=== PATIENT | male | born 1960 | race Caucasian/White ===

== ENCOUNTER → 2023-10-23 | Outpatient (CLI) | payer OTHER, SELFPAY ==
--- NOTE | 2023-10-23 10:07 | MRI_ITS ---
HISTORY: pain. TECHNIQUE: Multiplanar and multisequence MR images of the cervical spine were obtained without contrast. 271 images. COMPARISON: XR 10/05/2023. FINDINGS: VERTEBRAE: Vertebral body heights maintained. Degenerative bone marrow endplate changes at multiple levels. VERTEBRAL ALIGNMENT: No anterior or posterior subluxation. SPINAL CORD: Cervical cord signal and morphology within normal limits. SOFT TISSUES: No prevertebral fluid collection. INTERVERTEBRAL DISCS: C2-3: Very mild posterior disc bulge osteophyte complex without significant central canal stenosis or foraminal narrowing. C3-4: Mild posterior disc bulge osteophyte complex eccentric to the left with uncovertebral and facet arthropathy with left traversing nerve root abutment, minimal narrowing of the thecal sac, and mild left foraminal narrowing . C4-5: Mild posterior disc bulge osteophyte complex with uncovertebral and facet arthropathy resulting in mild central canal stenosis and left foraminal narrowing. C5-6: Mild posterior disc bulge osteophyte complex with uncovertebral and facet arthropathy resulting in mild central canal stenosis and right foraminal narrowing. C6-7: Mild posterior disc bulge osteophyte complex resulting in minimal narrowing of thecal sac. No significant foraminal narrowing. C7-T1: No significant posterior disc protrusion, central canal stenosis, or foraminal narrowing. MRI/Spine Cervical (Routine) IMPRESSION: Mild multilevel degenerative disc disease of the cervical spine as above. Electronically Signed: Herminia Hunter MD at 15:47 EDT ,
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
== END | disposition home or self-care (01) ==
PROVIDERS: PCP Family Medicine; Referring Provider Orthopaedic Surgery Orthopaedic Surgery of the Spine; Visit Provider Orthopaedic Surgery Orthopaedic Surgery of the Spine
DX: R52 Pain, unspecified (principal); Z87.821 Personal history of retained foreign body fully removed
CPT/HCPCS: 70030; 72141